=== PATIENT | female | born 1995 | race Caucasian/White ===

== ENCOUNTER 2019-11-15 15:01 | Emergency (ER) | payer MEDICAID ==
[~2019-11-15] VITALS: Ht 157.5 cm; Wt 72.6 kg
[2019-11-15 15:12] VITALS: BP 119/68
--- NOTE | 2019-11-15 15:13 | NUR ---
16 WKS PREG. 24 y/o FEMALED PRESENTED TO ED C/O MISCARRAIGE/VAGINAL BLEEDING. PT WAS SEEN AT [facility] AND TOLD SHE HAS A DEMISE OF A TWIN THAT ENDED AT APPROX. 8 WEEKS. PT STATES SHE WAS TOLD TO GO BACK TO HER OBGYN IN [place] TO FOLLOW UP BECAUSE SHE WAS SUPPOSED TO LEAVE TODAY. PT STATES VAGINAL BLEEDING BECAME HEAVIER AND SHE IS HAVING ALOT OF CRAMPING. PT 10/10 CRAMPING ABD PAIN. PT STATES SHE HAS GONE THROUGH 2 PADS IN 3 HOURS. PT STATES SHE PASSED A " COIN SIZED CLOT" THIS MORNING. PT STATES SHE CAME TO THE ED BECAUSE SHE STARTED GETTING A FEVER. PT BREATHING EVEN AND UNLABORED. PT A/O X4. PT HELPED INTO GOWN . PT RESTING IN BED AT LOWEST POSITION, HOB ELEVATED, SIDE RAIL X1. HX: NONE RX: NONE
--- NOTE | 2019-11-15 15:13 | NUR ---
patient ambulated to bed 12.
--- NOTE | 2019-11-15 15:13 | NUR ---
PT IS NOT HOMELESS, HOMELESS ASSESSMENT IS NOT NEEDED AT THIS TIME.
[2019-11-15] MEDS ORDERED: NACL 0.9% 1,000 ML IV ONE (15:50)
[2019-11-15] MEDS ORDERED: ONDANSETRON 4 MG/2 ML VIAL IVP ONE (15:50)
[2019-11-15] MEDS ORDERED: MORPHINE SULFATE 4 MG/ML SYR IVP ONE (15:50)
--- NOTE | 2019-11-15 16:00 | NUR ---
PT STATED SHE FELT A LOT COMING OUT, UPON OBSERVATION OBSERVED COIN SIZED CLOT. DR. MONTES MADE AWARE.
[2019-11-15 16:27] LABS: BASOPHILS # (AUTO) 0.1 K/uL (0.00-0.22); BASOPHILS % (AUTO) 1.5 % (0.0-2.0); EOSINOPHILS % (AUTO) 0.8 % (0.0-4.0); HEMATOCRIT 36.8 % (36-48); HEMOGLOBIN 12.5 g/dL (12.0-16.0); LYMPHOCYTES % (AUTO) 15.9 % (20.5-51.1); MEAN CORPUSCULAR HEMOGLOBIN 30 pg (27-31); MEAN CORPUSCULAR HGB CONC 34 g/dL (33-37); MEAN CORPUSCULAR VOLUME 88.7 fL (80-94); MONOCYTES # (AUTO) 0.3 K/uL (0.8-1.0); MONOCYTES % (AUTO) 4.9 % (1.7-9.3); NEUTROPHILS % (AUTO) 76.9 % (42.2-75.2); PLATELET COUNT (AUTO) 242 K/uL (140-450); RED BLOOD CELL COUNT(AUTO) 4.15 MIL/uL (4.20-5.40); WHITE BLOOD COUNT (AUTO) 6.4 K/uL (4.8-10.8)
[2019-11-15 16:37] LABS: ALBUMIN 3.6 g/dL (3.4-5.0); ANION GAP 16.6 (8-16); CARBON DIOXIDE 21.8 mmol/L (21-32); CREATININE 0.7 mg/dL (0.6-1.3); POTASSIUM 3.4 mmol/L (3.5-5.1)
--- NOTE | 2019-11-15 17:19 | NUR ---
PT ASSISTED TO BEDSIDE COMMODE. URINE SAMPLE PROVIDED.
--- NOTE | 2019-11-15 17:20 | NUR ---
PT RESTING IN BED AT LOWEST POSITION, HOB ELEVATED , SIDE RAIL X1.
--- NOTE | 2019-11-15 17:55 | NUR ---
PT PROVIDED MEAL.
--- NOTE | 2019-11-15 18:13 | NUR ---
ERMD AT BEDSIDE FOR MSE.
[2019-11-15 19:05] VITALS: BP 108/57
--- NOTE | 2019-11-15 19:06 | NUR ---
Patient discharged with v/s stable. Written and verbal after care instructions given and explained. Patient alert, oriented and verbalized understanding of instructions. Ambulatory with steady gait. All questions addressed prior to discharge. ID band removed. Patient advised to follow up with PMD. Rx of ZOFRAN, NORCO, COLACE given. Patient educated on indication of medication including possible reaction and side effects. Opportunity to ask questions provided and answered.
== END 2019-11-15 19:06 | disposition home or self-care (01) ==
LOC: MED 15:01
DX: O03.9 Complete or unspecified spontaneous abortion without complication (principal)
CPT/HCPCS: 36415; 80053; 81025; 84702; 85025; 86886; 86900; 86901; 96361; 96374; 96375; 99284; J2270; J2405; J7030